=== PATIENT | female | born 1975 | race Caucasian/White ===

== ENCOUNTER 2016-12-09 14:48 | Emergency (ER) | payer MEDICAID ==
[~2016-12-09] VITALS: Ht 170.2 cm; Wt 95.0 kg
[~2016-12-09 14:48] MED LIST: DOCU-30 PO; FEXO60TA9 PO; NICO1PAT10 TD; ONDA4TAB7 PO; OXYC-302 PO; OXYC1TAB9 PO; Polyethylene Glycol 3350 PO; TRAMADOL PO
[2016-12-09] MEDS ORDERED: OXYcodone/APAP 5/325MG TABLET ONE (16:28)
[2016-12-09] MEDS ORDERED: OXYcodone/APAP 5/325MG TABLET PO ONE (16:30)
[2016-12-09 16:59] VITALS: BP 134/81
== END 2016-12-09 17:02 | disposition home or self-care (01) ==
LOC: ED 16:08
DX: S90.31XA Contusion of right foot, initial encounter (principal); Z88.6 Allergy status to analgesic agent; Z88.8 Allergy status to other drugs, medicaments and biological substances; X58.XXXA Exposure to other specified factors, initial encounter; Y93.89 Activity, other specified; Y99.8 Other external cause status; Y92.89 Other specified places as the place of occurrence of the external cause

== ENCOUNTER 2017-09-07 16:25 | Emergency (ER) | payer MEDICAID ==
[~2017-09-07] VITALS: Ht 172.7 cm; Wt 101.9 kg
[~2017-09-07 16:25] MED LIST changes: +DOCU-131 PO; -DOCU-30 PO; +NICO-485 TD; -NICO1PAT10 TD
[2017-09-07] MEDS ORDERED: SODIUM CHLORIDE FLUSH 10ML SYR IVF ONE (17:00)
[2017-09-07] MEDS ORDERED: ONDANSETRON 2MG/ML, 2ML IVPush ONE (17:00)
[2017-09-07] MEDS ORDERED: SODIUM CHLORIDE 0.9% 1,000ML IVBOLUS ONE (17:00)
[2017-09-07] MEDS ORDERED: ONDANSETRON 2MG/ML, 2ML ONE (17:10)
[2017-09-07] MEDS ORDERED: MORPHINE SULFATE 4 MG/ML, 1ML ONE ×3 (17:10→20:55)
[2017-09-07 17:17] LABS: HEMATOCRIT 44.1 % (34.6-47.8); HEMOGLOBIN 14.9 g/dL (11.7-16.4); WHITE BLOOD COUNT 3.8 x10^3/uL (3.4-10)
[2017-09-07] MEDS: MORPHINE SULFATE 4 MG/ML, 1ML IVPush PRN ×2 (17:21→18:53)
[2017-09-07 17:27] LABS: ASPARTATE AMINO TRANSFERASE 27 U/L (15-37); BLOOD UREA NITROGEN 15 mg/dL (7-18)
[2017-09-07] MEDS ORDERED: OMNIPAQUE 350 MG/ML, 100ML BOTTLE ONE (20:25)
[2017-09-07] MEDS ORDERED: MORPHINE SULFATE 4 MG/ML, 1ML IVPush PRN (21:00)
[2017-09-07 21:38] VITALS: BP 118/58
== END 2017-09-07 22:01 | disposition home or self-care (01) ==
LOC: ED 19:04
DX: K42.9 Umbilical hernia without obstruction or gangrene (principal); E11.9 Type 2 diabetes mellitus without complications; G89.29 Other chronic pain; Z87.891 Personal history of nicotine dependence; Z90.49 Acquired absence of other specified parts of digestive tract; Z90.710 Acquired absence of both cervix and uterus
CPT/HCPCS: 36415; 74020; 74177; 80053; 81003; 83690; 85025; 96361; 96374; 96375; 96376; 99285; J2405; J7030; Q9967

== ENCOUNTER → 2017-10-23 | Outpatient (CLI) | payer MEDICAID | END | disposition home or self-care (01) | LOC: CFH 15:15 | PROVIDERS: ATTEND Internal Medicine Critical Care Medicine | DX: D86.9 Sarcoidosis, unspecified (principal); R59.1 Generalized enlarged lymph nodes; R91.1 Solitary pulmonary nodule | CPT/HCPCS: 71250 ==

== ENCOUNTER 2018-06-23 11:33 | Emergency (ER) | payer MEDICAID ==
[~2018-06-23] VITALS: Ht 170.2 cm; Wt 106.8 kg
[~2018-06-23 11:33] MED LIST changes: +ALBU8.5H8 INH; +FOLI-17 PO; +METF500T17 PO; +METH2.5T PO; +OXYC-432 PO; -OXYC1TAB9 PO
[2018-06-23 11:35] VITALS: BP 138/87
[2018-06-23] MEDS ORDERED: KETOROLAC 30 MG/1 ML ONE (12:05)
[2018-06-23] MEDS ORDERED: KETOROLAC 60 MG/2 ML IM ONE (13:00)
== END 2018-06-23 12:58 | disposition home or self-care (01) ==
LOC: ED 12:52
DX: S83.92XA Sprain of unspecified site of left knee, initial encounter (principal); E11.9 Type 2 diabetes mellitus without complications; X58.XXXA Exposure to other specified factors, initial encounter; Y93.89 Activity, other specified; Y92.89 Other specified places as the place of occurrence of the external cause; Y99.8 Other external cause status
CPT/HCPCS: 73564; 96372; 99284; J1885

== ENCOUNTER 2019-10-04 10:43 | Emergency (ER) | payer MEDICAID ==
[~2019-10-04] VITALS: Ht 170.2 cm; Wt 11.3 kg
[2019-10-04 10:51] VITALS: BP 159/92
--- NOTE | 2019-10-04 11:23 | NUR ---
PT HAS CO SYNCOPE X2. PT STATES SHE PASSED OUT WHILE TALKING TO HER DAUGHTER, AND ONE TIME BY HERSELF. PT DENIES INJURY OR TRAUMA. NO CP OR SOB, NO N/V/D. MD AT BEDSIDE DISCUSSING POC. ART OBJECTS REPAIRER APPLIED. UA SAMPLE PROVIDED.
[2019-10-04 11:42] LABS: MICROSCOPIC NOT IND
[2019-10-04 11:58] LABS: BASOPHILS # (AUTO) 0.03 x10^3/uL (0-0.1); BASOPHILS % (AUTO) 1 % (0-1); EOSINOPHILS # (AUTO) 0.23 x10^3/uL (0-0.4); EOSINOPHILS % (AUTO) 5 % (1-7); LYMPHOCYTES # (AUTO) 1.95 x10^3/uL (1-3.4); LYMPHOCYTES % (AUTO) 39 % (22-44); MD NO; MEAN CORPUSCULAR HEMOGLOBIN 29.3 pg (27.0-34.8); MEAN CORPUSCULAR HGB CONC 33.8 g/dL (32.4-35.8); MEAN CORPUSCULAR VOLUME 86.8 fL (80-100); MEAN PLATELET VOLUME 9.1 fL (7.4-10.4); MONOCYTES # (AUTO) 0.37 x10^3/uL (0.2-0.8); MONOCYTES % (AUTO) 8 % (2-9); NEUTROPHILS # (AUTO) 2.38 x10^3/uL (1.8-6.8); NEUTROPHILS % (AUTO) 48 % (42-75); PLATELET COUNT 231 x10^3/uL (130-400); RED BLOOD COUNT 5.48 x10^6/uL (3.82-5.3); RED CELL DISTRIBUTION WIDTH 13.6 % (9.6-15.2)
[2019-10-04 12:09] LABS: ALANINE AMINOTRANSFERASE 43 U/L (12-78); ALBUMIN 3.9 g/dL (3.4-5.0); ANION GAP 5 mmol/L (5-15); CALCIUM 8.2 mg/dL (8.5-10.1); CHLORIDE 112 mmol/L (98-107); CREATININE 0.76 mg/dL (0.55-1.02)
[2019-10-04 12:13] LABS: ALKALINE PHOSPHATASE 68 U/L (45-117); BILIRUBIN,TOTAL 0.4 mg/dL (0.2-1.0); TOTAL PROTEIN 7.5 g/dL (6.4-8.2); TROPONIN I < 0.015 ng/mL (0.000-0.045)
--- NOTE | 2019-10-04 12:46 | NUR ---
CARDIOLOGY WILL SEE PT. READY FOR DC.
--- NOTE | 2019-10-04 12:52 | NUR ---
Patient/Caregiver given discharge instructions and they have confirmed that they understand the instructions. Patient ambulatory with steady gait.
== END 2019-10-04 12:54 | disposition home or self-care (01) ==
LOC: ED 12:25
DX: R55 Syncope and collapse (principal); E11.9 Type 2 diabetes mellitus without complications; Z90.49 Acquired absence of other specified parts of digestive tract; Z90.710 Acquired absence of both cervix and uterus; R51 Headache
CPT/HCPCS: 36415; 70450; 80053; 81003; 83735; 84443; 84484; 85025; 93005; 99284

== ENCOUNTER → 2019-10-04 | Outpatient (CLI) | payer MEDICAID | END | disposition home or self-care (01) | LOC: EDIP 12:55 → UNDOADMOB 12:55 → SDC 12:55 → EDSTATUS 20:15 | PROVIDERS: ATTEND Emergency Medicine | DX: I47.1 Supraventricular tachycardia (principal) | CPT/HCPCS: 93225; 93226 ==

== ENCOUNTER → 2019-10-31 | Outpatient (CLI) | payer MEDICAID | END | disposition home or self-care (01) | LOC: CFH 08:17 | PROVIDERS: ATTEND Registered Nurse | DX: D86.0 Sarcoidosis of lung (principal); G47.33 Obstructive sleep apnea (adult) (pediatric); R59.0 Localized enlarged lymph nodes; K21.9 Gastro-esophageal reflux disease without esophagitis; F17.200 Nicotine dependence, unspecified, uncomplicated; Z68.37 Body mass index [BMI] 37.0-37.9, adult; Z88.5 Allergy status to narcotic agent; Z88.8 Allergy status to other drugs, medicaments and biological substances | CPT/HCPCS: 71250 ==

== ENCOUNTER 2019-11-05 17:13 | Emergency (ER) | payer MEDICAID ==
[~2019-11-05] VITALS: Ht 170.2 cm; Wt 112.3 kg
[2019-11-05] MEDS ORDERED: DIAZEPAM 5 MG TABLET ONE (17:49)
[2019-11-05] MEDS ORDERED: OXYcodone/APAP 5/325MG TABLET ONE (17:49)
[2019-11-05] MEDS ORDERED: KETOROLAC 30 MG/1 ML ONE (17:50)
[2019-11-05 17:59] VITALS: BP 140/73
--- NOTE | 2019-11-05 17:59 | NUR ---
PT MEDICATED PER EMAR FOR PAIN. BP/SPO2 MONITORING IN PLACE.
[2019-11-05] MEDS ORDERED: DIAZEPAM 5 MG TABLET PO ONE (18:00)
[2019-11-05] MEDS ORDERED: KETOROLAC 30 MG/1 ML IM ONE (18:00)
[2019-11-05] MEDS ORDERED: OXYcodone/APAP 5/325MG TABLET PO ONE (18:00)
--- NOTE | 2019-11-05 18:54 | NUR ---
PT REPORTS IMPROVEMENT IN PAIN. SPO2 >90% ON RA. DC EDUCATION PROVIDED, PT DEMONSTRATES UNDERSTANDING. PT AMBULATED STEADILY TO DC WITH RN. SO TO TRANSPORT PT HOME.
== END 2019-11-05 19:01 | disposition home or self-care (01) ==
LOC: ED 18:57
DX: S39.012A Strain of muscle, fascia and tendon of lower back, initial encounter (principal); R29.818 Other symptoms and signs involving the nervous system; M54.42 Lumbago with sciatica, left side; E11.9 Type 2 diabetes mellitus without complications; Z87.891 Personal history of nicotine dependence; X58.XXXA Exposure to other specified factors, initial encounter; Y93.89 Activity, other specified; Y92.89 Other specified places as the place of occurrence of the external cause; Y99.8 Other external cause status
CPT/HCPCS: 72110; 96372; 99284; J1885; J7512

== ENCOUNTER → 2019-11-12 | Outpatient (CLI) | payer MEDICAID | END | disposition home or self-care (01) | LOC: CFH 09:48 | PROVIDERS: ATTEND Internal Medicine Cardiovascular Disease | DX: R06.02 Shortness of breath (principal); R55 Syncope and collapse | CPT/HCPCS: 93306 ==

== ENCOUNTER → 2019-12-13 | Outpatient (CLI) | payer MEDICAID | END | disposition home or self-care (01) | LOC: CVU 07:37 | PROVIDERS: ATTEND Registered Nurse | DX: R55 Syncope and collapse (principal) | CPT/HCPCS: 93880 ==

== ENCOUNTER 2021-02-16 07:51 | Day surgery (SDC) | payer MEDICAID ==
[~2021-02-16] VITALS: Ht 170.2 cm; Wt 80.1 kg
[~2021-02-16 07:51] MED LIST changes: +BACITRACIN OINT 500U/GM, 15 GM ONE; +CETI10TA18 PO; +EPINEPHRINE 1 MG/ML, 1ML ONE; +ETAN25DI INJ; +FLUORESCEIN SODIUM 500 MG/5 ML ONE; -FOLI-17 PO; +FOLI1TAB32 PO; +LIDOCAINE/PF 1%, 30ML ONE; +MULT1CAP PO; -OXYC-302 PO; -OXYC-432 PO; +OXYC1TAB14 PO; +OXYC1TAB18 PO; +OXYMETAZOLINE NASAL SPRAY 0.05%,30ML ONE
[2021-02-16 08:17] VITALS: BP 115/73
[2021-02-16] MEDS ORDERED: CHLORHEXIDINE 15 ML UDC ONE (08:23)
[2021-02-16] MEDS ORDERED: CHLORHEXIDINE 15 ML UDC PO ONE (08:30)
[2021-02-16] MEDS ORDERED: LACTATED RINGERS 1,000 ML IV SCH (08:30)
[2021-02-16] MEDS ORDERED: MIDAZOLAM 1 MG/ML, 2ML ONE (09:19)
[2021-02-16] MEDS ORDERED: FENTANYL PF 100 MCG/2ML ONE ×2 (09:20→12:28)
[2021-02-16] MEDS ORDERED: HYDROmorphone 1 MG/ML, 1ML INJ ONE (09:20)
[2021-02-16] MEDS ORDERED: PROPOFOL 10 MG/ML, 20ML ONE ×2 (09:38→15:00)
[2021-02-16] MEDS ORDERED: DEXAMETHASONE 4 MG/ML, 1ML ONE ×2 (09:38→15:00)
[2021-02-16] MEDS ORDERED: PHENYLEPHRINE 10 MG/ML ONE (09:38)
[2021-02-16] MEDS ORDERED: CEFAZOLIN 1,000 MG ONE (09:38)
[2021-02-16] MEDS ORDERED: GLYCOPYRROLATE 0.2MG/1ML, 5ML ONE (09:38)
[2021-02-16] MEDS ORDERED: EPHEDRINE 50 MG/ML, 1ML ONE ×2 (09:38→15:00)
[2021-02-16] MEDS ORDERED: ROCURONIUM 10 MG/ML,10ML ONE (09:38)
[2021-02-16] MEDS ORDERED: NEOSTIGMINE 1 MG/ML, 10ML ONE ×2 (09:38→15:00)
[2021-02-16] MEDS ORDERED: ONDANSETRON 2MG/ML, 2ML ONE ×2 (09:38→15:00)
[2021-02-16] MEDS ORDERED: DIPHENHYDRAMINE 50 MG/ML, 1ML IVPush PRN (11:00)
[2021-02-16] MEDS ORDERED: HALOPERIDOL 5 MG/ML IV PRN (11:00)
[2021-02-16] MEDS ORDERED: FENTANYL PF 100 MCG/2ML IV PRN (11:00)
[2021-02-16] MEDS ORDERED: METOPROLOL 1 MG/ML, 5ML IV PRN (11:00)
[2021-02-16] MEDS ORDERED: MEPERIDINE/PF 25MG/0.5ML IVPush PRN (11:00)
[2021-02-16] MEDS ORDERED: LABETALOL 5MG/ML, 20ML IV PRN (11:00)
[2021-02-16] MEDS ORDERED: METOCLOPRAMIDE 5 MG/ML, 2ML IVPush PRN (11:00)
[2021-02-16] MEDS ORDERED: ONDANSETRON 2MG/ML, 2ML IVPush PRN (11:00)
[2021-02-16] MEDS ORDERED: hydrALAzine 20 MG/ML, 1ML IV PRN (11:00)
[2021-02-16] MEDS ORDERED: EPHEDRINE 50 MG/ML, 1ML IVPush PRN (11:00)
[2021-02-16] MEDS ORDERED: PROMETHAZINE 25 MG/ML, 1ML IVPush PRN (11:00)
[2021-02-16] MEDS ORDERED: DIAZEPAM 5 MG/ML, 2ML IVPush PRN (11:00)
[2021-02-16] MEDS ORDERED: HYDROmorphone 1 MG/ML, 1ML INJ IVPush PRN (11:00)
[2021-02-16] MEDS ORDERED: KETOROLAC 30 MG/1 ML IV PRN (11:00)
[2021-02-16] MEDS ORDERED: ACETAMINOPHEN 325 MG TABLET PO PRN (11:00)
[2021-02-16] MEDS ORDERED: EPINEPHRINE TOPICAL SOLN 1 MG/ML, 30ML ONE (12:22)
[2021-02-16] MEDS ORDERED: ACETAMINOPHEN 650 MG/20.3 ML UDC ONE (12:28)
[2021-02-16] MEDS ORDERED: OXYcodone 5 MG/5 ML ORAL.SOL UDC ONE (12:28)
[2021-02-16] MEDS: OXYcodone 5 MG/5 ML ORAL.SOL UDC PO PRN ×2 (12:30→14:02)
[2021-02-16] MEDS ORDERED: GLYCOPYRROLATE 0.4 MG/2 ML, 2ML ONE (15:00)
[2021-02-16] MEDS ORDERED: ROCURONIUM 10MG/ML,5ML ONE (15:00)
[2021-02-17] MEDS ORDERED: DEXAMETHASONE 4 MG/ML, 1ML ONE (14:47)
[2021-02-17] MEDS ORDERED: PROPOFOL 10 MG/ML, 20ML ONE (14:47)
[2021-02-17] MEDS ORDERED: ONDANSETRON 2MG/ML, 2ML ONE (14:47)
[2021-02-17] MEDS ORDERED: NEOSTIGMINE 1 MG/ML, 10ML ONE (14:47)
[2021-02-17] MEDS ORDERED: ROCURONIUM 10MG/ML,5ML ONE (14:47)
[2021-02-17] MEDS ORDERED: GLYCOPYRROLATE 0.4 MG/2 ML, 2ML ONE (14:47)
[2021-02-17] MEDS ORDERED: EPHEDRINE 50 MG/ML, 1ML ONE (14:47)
== END 2021-02-16 14:35 | disposition home or self-care (01) ==
LOC: OUT 07:51
PROVIDERS: ATTEND Otolaryngology
DX: J32.4 Chronic pansinusitis (principal); J32.2 Chronic ethmoidal sinusitis; J34.2 Deviated nasal septum; J34.3 Hypertrophy of nasal turbinates; G47.30 Sleep apnea, unspecified; K90.0 Celiac disease; H60.311 Diffuse otitis externa, right ear; H81.11 Benign paroxysmal vertigo, right ear; Z20.822 Contact with and (suspected) exposure to COVID-19; Z79.899 Other long term (current) drug therapy; Z88.5 Allergy status to narcotic agent; Z98.84 Bariatric surgery status
CPT/HCPCS: 30520; 31253; 31257; 31267; 87070; 87075; 87077; 87186; 87205; 88304; 88311; J0171; J0690; J1100; J1170; J2250; J2370; J2405; J2704; J2710; J3010; J7120; U0003; U0005

== ENCOUNTER 2021-02-23 05:17 | Day surgery (SDC) | payer MEDICAID ==
[~2021-02-23] VITALS: Ht 171.4 cm; Wt 80.6 kg
[~2021-02-23 05:17] MED LIST changes: -BACITRACIN OINT 500U/GM, 15 GM ONE; -EPINEPHRINE 1 MG/ML, 1ML ONE; -FLUORESCEIN SODIUM 500 MG/5 ML ONE; -LIDOCAINE/PF 1%, 30ML ONE; -OXYMETAZOLINE NASAL SPRAY 0.05%,30ML ONE
[2021-02-23 05:57] VITALS: BP 107/71
[2021-02-23] MEDS ORDERED: OXYMETAZOLINE NASAL SPRAY 0.05%,30ML ONE (06:12)
[2021-02-23] MEDS ORDERED: OXYcodone 5 MG/5 ML ORAL.SOL UDC PO PRN (07:30)
[2021-02-23] MEDS ORDERED: FENTANYL PF 100 MCG/2ML IV PRN (07:30)
[2021-02-23] MEDS ORDERED: PROMETHAZINE 25 MG/ML, 1ML IVPush PRN (07:30)
[2021-02-23] MEDS ORDERED: hydrALAzine 20 MG/ML, 1ML IV PRN (07:30)
[2021-02-23] MEDS ORDERED: MEPERIDINE/PF 25MG/0.5ML IVPush PRN (07:30)
[2021-02-23] MEDS ORDERED: HALOPERIDOL 5 MG/ML IV PRN (07:30)
[2021-02-23] MEDS ORDERED: HYDROmorphone 1 MG/ML, 1ML INJ IVPush PRN (07:30)
[2021-02-23] MEDS ORDERED: ACETAMINOPHEN 325 MG TABLET PO PRN (07:30)
[2021-02-23] MEDS ORDERED: DIPHENHYDRAMINE 50 MG/ML, 1ML IVPush PRN (07:30)
[2021-02-23] MEDS ORDERED: LABETALOL 5MG/ML, 20ML IV PRN (07:30)
== END 2021-02-23 07:40 | disposition home or self-care (01) ==
LOC: OUT 05:17
PROVIDERS: ATTEND Otolaryngology
DX: J32.4 Chronic pansinusitis (principal); G47.30 Sleep apnea, unspecified; Z20.822 Contact with and (suspected) exposure to COVID-19; Z79.899 Other long term (current) drug therapy; Z88.5 Allergy status to narcotic agent; Z98.84 Bariatric surgery status
CPT/HCPCS: 87635

== ENCOUNTER 2021-05-27 23:14 | Emergency (ER) | payer MEDICAID ==
[~2021-05-27] VITALS: Ht 170.2 cm; Wt 76.7 kg
[~2021-05-27 23:14] MED LIST changes: +OXYC1TAB12 PO; -OXYC1TAB14 PO
[2021-05-27 23:22] VITALS: BP 104/72
--- NOTE | 2021-05-27 23:44 | NUR ---
PT WHEELED TO ROOM, AND ON O2 SAT PROBE AND IN BED. MD TO BEDSIDE TO EVAL PT. BRIM FLEXER TO BEDSIDE AND CXRY DONE. PT TOLERATED WELL. O2 SATS 98% ON ROOM AIR.
[2021-05-27] MEDS ORDERED: DEXAMETHASONE 4 MG/ML, 5ML ONE (23:57)
[2021-05-27] MEDS ORDERED: METOCLOPRAMIDE 5 MG/ML, 2ML ONE (23:57)
[2021-05-27] MEDS ORDERED: KETOROLAC 30 MG/1 ML ONE (23:57)
[2021-05-28] MEDS ORDERED: SODIUM CHLORIDE 0.9% 1,000ML IVBOLUS ONE
[2021-05-28] MEDS ORDERED: METOCLOPRAMIDE 5 MG/ML, 2ML IVPush ONE
[2021-05-28] MEDS ORDERED: DEXAMETHASONE 4 MG/ML, 1ML IVPush ONE
[2021-05-28] MEDS ORDERED: ONDANSETRON 2MG/ML, 2ML IVPush ONE
[2021-05-28] MEDS ORDERED: SODIUM CHLORIDE FLUSH 10ML SYR IVF ONE
[2021-05-28] MEDS ORDERED: KETOROLAC 30 MG/1 ML IVPush ONE
--- NOTE | 2021-05-28 00:16 | NUR ---
ORDERS RECEIVED, AND PT A&OX4. AIRWAY INTACT, GOOD AERATION AND OXYGENATION. O2 SAT AT 96% ON ROOM AIR. PT HAD IV TO LEFT AC STARTED X2 ATTEMPT, AND PT TOLERATED WELL. FLUSHED EASY, SOFT AND FLAT AND NO SIGN OF REDNESS. IVF NS 1LITER HUNG TO RUN OVER AN HOUR. MEDS GIVEN PER MD ORDER, SEE EMAR. PT HAS HER DAUGHTER AT BEDSIDE WITH HER.
[2021-05-28] MEDS ORDERED: ONDANSETRON 2MG/ML, 2ML ONE (00:21)
--- NOTE | 2021-05-28 01:13 | NUR ---
PT IN GOOD SPIRITS, AND SAYS SHE FEELS BETTER THAN WHEN SHE CAME IN. PIV ON LEFT AC D/C'D AND CATH TIP INTACT. PT TOLERATED WELL. F/U AND D/C INSTRUCTIONS WITH PRESCRIPTIONS GIVEN TO PT AND SHE V/U. PT AMBULATED TO DC DESK.
== END 2021-05-28 01:18 | disposition home or self-care (01) ==
LOC: ED 23:59
DX: U07.1 COVID-19 (principal); J18.9 Pneumonia, unspecified organism; E11.9 Type 2 diabetes mellitus without complications; Z90.89 Acquired absence of other organs; Z90.49 Acquired absence of other specified parts of digestive tract; Z90.710 Acquired absence of both cervix and uterus; Z86.39 Personal history of other endocrine, nutritional and metabolic disease; Z87.891 Personal history of nicotine dependence
CPT/HCPCS: 71045; 93005; 96361; 96374; 96375; 99284; J1100; J1885; J2405; J2765; J7030